=== PATIENT | male | born 1945 | race Caucasian/White ===

== ENCOUNTER 2024-01-14 09:26 | Emergency (ER) | payer MEDICARE, OTHER ==
[2024-01-14 09:44] VITALS: RESP 18; TEMP 98.3
--- NOTE | 2024-01-14 10:20 | ED ---
General Adult HPI - General Chief complaint: Upper Respiratory Infection Stated complaint: Chest Pain Time Seen by Provider: 01/14/24 09:46 Source: patient, RN notes reviewed Mode of arrival: ambulatory Limitations: no limitations - History of Present Illness Initial comments: This is a 78-year-old male who presents to the emergency department for chest pain, shortness of breath, body aches, coughing, and congestion. Symptoms started 1.5 weeks ago. States that it hurts to take a deep breath and feels like he is unable to take a deep breath. He also feels fatigued and short of breath with exertion. Denies any sick contacts. He did just start Remicade infusions for Crohn's disease about a month ago. Denies any fevers/chills. He has also started to develop a headache and states that his body aches seem to be getting worse. - Related Data Home Medications Medication Instructions Recorded Confirmed Calcium Carb/Vitamin D3/Vit K1 1 tab PO DAILY 01/14/24 01/14/24 [Viactiv 650 mg-12.5 Mcg Chew] Cyanocobalamin [Vitamin B-12 1,000 mcg SQ QMONTHLY 01/14/24 01/14/24 Injection] Glucosam/Dane-Msm1/C/Jose/Bosw 2 tab PO DAILY 01/14/24 01/14/24 [Glucosamine-Chondroitin Tablet] [place]-3/Dha/Epa/Fish Oil [Fish Oil 1 cap PO DAILY 01/14/24 01/14/24 1,000 mg Softgel] Psyllium Husk [Metamucil] 0.4 gm PO DAILY 01/14/24 01/14/24 Turmeric Root Extract [Turmeric] 500 mg PO DAILY 01/14/24 01/14/24 Zinc Gluconate [Zinc] 50 mg PO DAILY 01/14/24 01/14/24 Previous Rx's Medication Instructions Recorded Azithromycin [Zithromax] 250 mg PO DIRECTED 5 Days #6 tab 01/14/24 Benzonatate [Tessalon Perle] 200 mg PO TID PRN #30 capsule 01/14/24 Nirmatrelvir/Ritonavir [Paxlovid 1 pack PO BID 5 Days #30 tab 01/14/24 300-100 mg Dose Pack] Ondansetron Odt [Zofran Odt] 4 mg PO Q8HR PRN #15 tab 01/14/24 Allergies Allergy/AdvReac Type Severity Reaction Status Date / Time No Known Allergies Allergy Verified 01/14/24 12:08 Review of Systems ROS Statement: Those systems with pertinent positive or pertinent negative responses have been documented in the HPI. ROS Other: All systems not noted in ROS Statement are negative. Past Medical History Additional Past Medical History / Comment(s): Crohns History of Any Multi-Drug Resistant Organisms: None Reported Past Psychological History: No Psychological Hx Reported Smoking Status: Never smoker Past Alcohol Use History: Occasional Past Drug Use History: None Reported General Exam Limitations: no limitations General appearance: alert, in no apparent distress Head exam: Present: atraumatic, normocephalic, normal inspection Respiratory exam: Present: normal lung sounds bilaterally. Absent: respiratory distress, wheezes, rales, rhonchi, stridor Cardiovascular Exam: Present: regular rate, normal rhythm, normal heart sounds. Absent: systolic murmur, diastolic murmur, rubs, gallop, clicks Neurological exam: Present: alert, oriented X3, CN II-XII intact Psychiatric exam: Present: normal affect, normal mood Skin exam: Present: warm, dry, intact, normal color. Absent: rash Course Vital Signs 01/14/24 01/14/24 01/14/24 09:30 09:52 10:34 Temperature 98.3 F Pulse Rate 84 86 Respiratory 18 18 18 Rate Blood Pressure 131/74 120/70 O2 Sat by Pulse 96 98 Oximetry 01/14/24 12:45 Temperature Pulse Rate 89 Respiratory 18 Rate Blood Pressure 132/86 O2 Sat by Pulse 97 Oximetry Medical Decision Making - Medical Decision Making This is a 78 year old male who presents to the emergency department for shortness of breath, fatigue, and body aches. Was pt. sent in by a medical professional or institution? @ -No Did you speak to anyone other than the patient for history? @ -No Did you review nursing and triage notes? @ -Yes, and I agree, it is accurate with regards to the patient's symptoms. Were old charts reviewed? @ -No Differential Diagnosis? @ -Differential Dyspnea: Coronary syndrome, arrhythmia, tamponade, asthma, COPD, pulmonary embolism, pneumonia, pneumothorax, pulmonary effusion, anaphylaxis, diabetic ketoacidosis, flailed chest, pulmonary contusion, diaphragmatic rupture, anemia, neuromuscular, this is not meant to be an all-inclusive list. EKG interpreted by me (3pts min.)? @ -EKG interpreted by me demonstrating the following: Sinus rhythm. Ventricular rate 69 bpm, CO interval 184 ms, QRS duration 101 ms, QTc 398 ms. X-rays interpreted by me (1pt min.)? @ -Chest x-ray obtained, my interpretation identifies scattered opacities. CT interpreted by me (1pt min.)? @ -Not obtained U/S interpreted by me (1pt. min.)? @ -Not obtained What testing was considered but not performed? (CT, X-rays, U/S, labs)? Why? @ -None What meds were considered but not given? Why? @ -None Did you discuss the management of the patient with other professionals? @ -No Did you reconcile home meds? @ -No Was smoking cessation discussed for >3mins.? @ -No Was critical care preformed (if so, how long)? @ -No Were there social determinants of health that impacted care today? How? (Homelessness, low income, unemployed, alcoholism, drug addiction, transpor tation, low edu. Level, literacy, decrease access to med. care, fpc, rehab)? @ -No Was there de-escalation of care discussed even if they declined? (Discuss DNR or withdrawal of care, Hospice)? @ -No What co-morbidities impacted this encounter? (DM, HTN, Smoking, COPD, CAD, Cancer, CVA, Hep., AIDS, mental health diagnosis, sleep apnea, morbid obesity)? @ -Crohn's disease Was patient admitted / discharged? @ -Discharged. Lab work unremarkable, including a negative troponin and negative D-dimer. Patient positive for COVID-19. Influenza and RSV testing were negative. Urinalysis negative for signs of infection. Chest x-ray demonstrates subtle scattered opacities which may represent an atypical pneu monia. Findings reviewed with the patient. Given that the patient is immunocompromised, he was started on Paxlovid as well as azithromycin for possible superimposed infection based on chest x-ray findings. Prescription for Tessalon Perles and zofran provided as well for symptomatic management. Advised getting plenty of rest and drinking plenty of fluids. Patient discharged home in stable condition. Undiagnosed new problem with uncertain prognosis? @ -None Drug Therapy requiring intensive monitoring for toxicity (Heparin, Nitro, Insulin, Cardizem)? @ -None Were any procedures done? @ -None Diagnosis/symptom? @ -COVID-19 pneumonia Acute, or Chronic, or Acute on Chronic? @ -Acute Uncomplicated (without systemic symptoms) or Complicated (systemic symptoms)? @ -Uncomplicated Side effects of treatment? @ -None Exacerbation, Progression, or Severe Exacerbation] @ -Not applicable Poses a threat to life or bodily function? @ -No Return precautions reviewed in depth, the patient is instructed to return to the emergency department with any new, worsening, or concerning symptoms. Patient verbalized understanding. This case was discussed in detail with the attending ED physician, Dr. Solorio. Presentation, findings, and treatment plan discussed in detail as well. - Lab Data Result diagrams: 01/14/24 10:50 01/14/24 10:50 Lab Results 01/14/24 01/14/24 01/14/24 Range/Units 10:50 10:50 10:50 WBC 7.0 (3.8-10.6) k/uL RBC 3.93 L (4.30-5.90) m/uL Hgb 12.2 L (13.0-17.5) gm/dL Hct 37.1 L (39.0-53.0) % MCV 94.6 (80.0-100.0) fL MCH 31.0 (25.0-35.0) pg MCHC 32.8 (31.0-37.0) g/dL RDW 13.0 (11.5-15.5) % Plt Count 215 (150-450) k/uL MPV 8.7 Neutrophils % 76 % Lymphocytes % 11 % Monocytes % 8 % Eosinophils % 3 % Basophils % 0 % Neutrophils # 5.3 (1.3-7.7) k/uL Lymphocytes # 0.8 L (1.0-4.8) k/uL Monocytes # 0.5 (0-1.0) k/uL Eosinophils # 0.2 (0-0.7) k/uL Basophils # 0.0 (0-0.2) k/uL PT 11.1 (10.0-12.5) sec INR 1.0 (<1.2) APTT 28.2 (22.0-30.0) sec D-Dimer 0.38 (<0.60) mg/L FEU Sodium 137 (137-145) mmol/L Potassium 4.3 (3.5-5.1) mmol/L Chloride 104 (98-107) mmol/L Carbon Dioxide 29 (22-30) mmol/L Anion Gap 4 mmol/L BUN 11 (9-20) mg/dL Creatinine 0.94 (0.66-1.25) mg/dL Est GFR (CKD-EPI)AfAm 90 (>60 ml/min/1.73 sqM) Est GFR (CKD-EPI)NonAf 78 (>60 ml/min/1.73 sqM) Glucose 94 (74-99) mg/dL Plasma Lactic Acid Clifford (0.7-2.0) mmol/L Calcium 8.7 (8.4-10.2) mg/dL Magnesium 2.1 (1.6-2.3) mg/dL Total Bilirubin 1.2 (0.2-1.3) mg/dL AST 25 (17-59) U/L ALT 14 (4-49) U/L Alkaline Phosphatase 65 (38-126) U/L Troponin I (0.000-0.034) ng/mL NT-Pro-B Natriuret Pep 146 pg/mL Total Protein 6.5 (6.3-8.2) g/dL Albumin 3.8 (3.5-5.0) g/dL Urine Color Urine Appearance (Clear) Urine pH (5.0-8.0) Ur Specific [place] (1.001-1.035) Urine Protein (Negative) Urine Glucose (UA) (Negative) Urine Ketones (Negative) Urine Blood (Negative) Urine Nitrite (Negative) Urine Bilirubin (Negative) Urine Urobilinogen (<2.0) mg/dL Ur Leukocyte Esterase (Negative) Influenza Type A (PCR) (Not Detectd) Influenza Type B (PCR) (Not Detectd) RSV (PCR) (Not Detectd) SARS-CoV-2 (PCR) (Not Detectd) 01/14/24 01/14/24 01/14/24 Range/Units 10:50 10:50 10:53 WBC (3.8-10.6) k/uL RBC (4.30-5.90) m/uL Hgb (13.0-17.5) gm/dL Hct (39.0-53.0) % MCV (80.0-100.0) fL MCH (25.0-35.0) pg MCHC (31.0-37.0) g/dL RDW (11.5-15.5) % Plt Count (150-450) k/uL MPV Neutrophils % % Lymphocytes % % Monocytes % % Eosinophils % % Basophils % % Neutrophils # (1.3-7.7) k/uL Lymphocytes # (1.0-4.8) k/uL Monocytes # (0-1.0) k/uL Eosinophils # (0-0.7) k/uL Basophils # (0-0.2) k/uL PT (10.0-12.5) sec INR (<1.2) APTT (22.0-30.0) sec D-Dimer (<0.60) mg/L FEU Sodium (137-145) mmol/L Potassium (3.5-5.1) mmol/L Chloride (98-107) mmol/L Carbon Dioxide (22-30) mmol/L Anion Gap mmol/L BUN (9-20) mg/dL Creatinine (0.66-1.25) mg/dL Est GFR (CKD-EPI)AfAm (>60 ml/min/1.73 sqM) Est GFR (CKD-EPI)NonAf (>60 ml/min/1.73 sqM) Glucose (74-99) mg/dL Plasma Lactic Acid Clifford 1.0 (0.7-2.0) mmol/L Calcium (8.4-10.2) mg/dL Magnesium (1.6-2.3) mg/dL Total Bilirubin (0.2-1.3) mg/dL AST (17-59) U/L ALT (4-49) U/L Alkaline Phosphatase (38-126) U/L Troponin I <0.012 (0.000-0.034) ng/mL NT-Pro-B Natriuret Pep pg/mL Total Protein (6.3-8.2) g/dL Albumin (3.5-5.0) g/dL Urine Color Urine Appearance (Clear) Urine pH (5.0-8.0) Ur Specific [place] (1.001-1.035) Urine Protein (Negative) Urine Glucose (UA) (Negative) Urine Ketones (Negative) Urine Blood (Negative) Urine Nitrite (Negative) Urine Bilirubin (Negative) Urine Urobilinogen (<2.0) mg/dL Ur Leukocyte Esterase (Negative) Influenza Type A (PCR) Not Detected (Not Detectd) Influenza Type B (PCR) Not Detected (Not Detectd) RSV (PCR) Not Detected (Not Detectd) SARS-CoV-2 (PCR) Detected A (Not Detectd) 01/14/24 Range/Units 10:55 WBC (3.8-10.6) k/uL RBC (4.30-5.90) m/uL Hgb (13.0-17.5) gm/dL Hct (39.0-53.0) % MCV (80.0-100.0) fL MCH (25.0-35.0) pg MCHC (31.0-37.0) g/dL RDW (11.5-15.5) % Plt Count (150-450) k/uL MPV Neutrophils % % Lymphocytes % % Monocytes % % Eosinophils % % Basophils % % Neutrophils # (1.3-7.7) k/uL Lymphocytes # (1.0-4.8) k/uL Monocytes # (0-1.0) k/uL Eosinophils # (0-0.7) k/uL Basophils # (0-0.2) k/uL PT (10.0-12.5) sec INR (<1.2) APTT (22.0-30.0) sec D-Dimer (<0.60) mg/L FEU Sodium (137-145) mmol/L Potassium (3.5-5.1) mmol/L Chloride (98-107) mmol/L Carbon Dioxide (22-30) mmol/L Anion Gap mmol/L BUN (9-20) mg/dL Creatinine (0.66-1.25) mg/dL Est GFR (CKD-EPI)AfAm (>60 ml/min/1.73 sqM) Est GFR (CKD-EPI)NonAf (>60 ml/min/1.73 sqM) Glucose (74-99) mg/dL Plasma Lactic Acid Clifford (0.7-2.0) mmol/L Calcium (8.4-10.2) mg/dL Magnesium (1.6-2.3) mg/dL Total Bilirubin (0.2-1.3) mg/dL AST (17-59) U/L ALT (4-49) U/L Alkaline Phosphatase (38-126) U/L Troponin I (0.000-0.034) ng/mL NT-Pro-B Natriuret Pep pg/mL Total Protein (6.3-8.2) g/dL Albumin (3.5-5.0) g/dL Urine Color Yellow Urine Appearance Clear (Clear) Urine pH 5.5 (5.0-8.0) Ur Specific [place] 1.020 (1.001-1.035) Urine Protein Trace H (Negative) Urine Glucose (UA) Negative (Negative) Urine Ketones Negative (Negative) Urine Blood Negative (Negative) Urine Nitrite Negative (Negative) Urine Bilirubin Negative (Negative) Urine Urobilinogen <2.0 (<2.0) mg/dL Ur Leukocyte Esterase Negative (Negative) Influenza Type A (PCR) (Not Detectd) Influenza Type B (PCR) (Not Detectd) RSV (PCR) (Not Detectd) SARS-CoV-2 (PCR) (Not Detectd) - Radiology Data Radiology results: report reviewed, image reviewed Disposition Clinical Impression: Pneumonia due to COVID-19 virus Disposition: HOME SELF-CARE Instructions (If sedation given, give patient instructions): Coronavirus Disease 2019 (COVID-19), COVID-19 (Coronavirus Disease 2019) (ED), Safely Care for Someone Who Has COVID-19 (ED) Additional Instructions: Return to the emergency department with any new, worsening, or concerning symptoms. Take the antibiotic as prescribed for 5 days. Take the Paxlovid twice daily for 5 days. You can take the Tessalon Perles up to every 8 hours as needed for coughing. You can take the Zofran up to every 8 hours as needed for nausea and vomiting. Make sure you get plenty of rest and drink plenty of fluids. Follow up with your primary care provider in 1-2 days. Prescriptions: Nirmatrelvir/Ritonavir [Paxlovid 300-100 mg Dose Pack] 1 pack PO BID 5 Days #30 tab Benzonatate [Tessalon Perle] 200 mg PO TID PRN #30 capsule PRN Reason: Cough Azithromycin [Zithromax] 250 mg PO DIRECTED 5 Days #6 tab Ondansetron Odt [Zofran Odt] 4 mg PO Q8HR PRN #15 tab PRN Reason: Nausea And Vomiting Is patient prescribed a controlled substance at d/c from ED?: No Referrals: Nonstaff,Physician [Primary Care Provider] - 1-2 days Time of Disposition: 12:28
[2024-01-14 11:15] LABS: Basophils % (A) 0 %; Eosinophils # (A) 0.2 k/uL (0-0.7); Eosinophils % (A) 3 %; HCT 37.1 % (39.0-53.0); HGB 12.2 gm/dL (13.0-17.5); Lymphocytes # (A) 0.8 k/uL (1.0-4.8); Lymphocytes % (A) 11 %; MCHC 32.8 g/dL (31.0-37.0); MCV 94.6 fL (80.0-100.0); Mean Platelet Volume 8.7; Monocytes # (A) 0.5 k/uL (0-1.0); Monocytes % (A) 8 %; Neutrophils # (A) 5.3 k/uL (1.3-7.7); Neutrophils % (A) 76 %; Platelet Count 215 k/uL (150-450); Prothrombin Time 11.1 sec (10.0-12.5); RBC 3.93 m/uL (4.30-5.90)
[2024-01-14 11:16] LABS: Partial Thromboplastin Time 28.2 sec (22.0-30.0)
[2024-01-14 11:20] LABS: ALT 14 U/L (4-49); AST 25 U/L (17-59); African American GFR (CKD) 90 (>60 ml/min/1.73 sqM); Albumin 3.8 g/dL (3.5-5.0); Alkaline Phosphatase 65 U/L (38-126); Anion Gap 4 mmol/L; Blood Urea Nitrogen 11 mg/dL (9-20); Calcium 8.7 mg/dL (8.4-10.2); Carbon Dioxide 29 mmol/L (22-30); Chloride 104 mmol/L (98-107); Glucose 94 mg/dL (74-99); Magnesium 2.1 mg/dL (1.6-2.3); Non-African American GFR(CKD) 78 (>60 ml/min/1.73 sqM); Potassium 4.3 mmol/L (3.5-5.1); Sodium 137 mmol/L (137-145); Total Bilirubin 1.2 mg/dL (0.2-1.3); Total Protein 6.5 g/dL (6.3-8.2)
[2024-01-14 11:28] LABS: Appearance,Urine Clear (Clear); Bilirubin,Urine Negative (Negative); Blood,Urine Negative (Negative); Color,Urine Yellow; Glucose,Urine (UA) Negative (Negative); Ketones,Urine Negative (Negative); Leukocyte Esterase,Urine Negative (Negative); Nitrite,Urine Negative (Negative); PH, Urine 5.5 (5.0-8.0); Protein,Urine Trace (Negative); Urobilinogen,Urine <2.0 mg/dL (<2.0)
[2024-01-14 11:29] LABS: NT-Pro-B-Type Natriuretic Pept 146 pg/mL
--- NOTE | 2024-01-14 12:02 | XR ---
EXAMINATION TYPE: XR chest 2V DATE OF EXAM: 01/14/2024 11:52 AM CLINICAL INDICATION:Male, 78 years old with history of difficulty breathing; LOCATED WITHIN [facility] COMPARISON: Chest radiographs from 01/14/2024 TECHNIQUE: XR chest 2V Frontal and lateral views of the chest. FINDINGS: Lungs/Pleura: Scattered subtle reticular and hazy opacities. No evidence of pneumothorax, focal conso lidation or pleural effusion. Pulmonary vascularity: Unremarkable. Heart/mediastinum: Cardiomediastinal silhouette is unremarkable. Musculoskeletal: No acute osseous pathology. IMPRESSION: Subtle scattered opacities which may represent an atypical pneumonia.
[2024-01-14 13:29] VITALS: BP 132/86; PULSE 89
== END 2024-01-14 13:03 | disposition home or self-care (01) ==
LOC: EC 09:26
DX: U07.1 COVID-19 (principal); J12.82 Pneumonia due to coronavirus disease 2019; K50.90 Crohn's disease, unspecified, without complications
CPT/HCPCS: 36415; 71046; 80053; 81003; 83605; 83735; 83880; 84484; 85025; 85379; 85610; 85730; 87636; 93005; 99285

== ENCOUNTER 2024-03-11 07:25 | Emergency (ER) | payer MEDICARE, OTHER ==
[2024-03-11] MEDS: EPINEPHrine - Anaphylaxis Kit (1 mg/mL) IM STA ×2 (07:55→09:31)
[2024-03-11 08:03] VITALS: RESP 18
--- NOTE | 2024-03-11 08:05 | ED ---
General Adult HPI - General Chief complaint: ENT Stated complaint: throat/facial swelling Time Seen by Provider: 03/11/24 07:35 Source: patient, RN notes reviewed, old records reviewed Mode of arrival: ambulatory Limitations: no limitations - History of Present Illness Initial comments: This is a 78-year-old male who presents to the emergency department complaining that his throat feels like it is closing off as well as some swelling to the left side of his cheek. Patient states this all started last night when he ate some fish at a restaurant and it came on rather quickly. Patient states he did have an episode over the weekend where he felt like his allergies were acting up and he felt a little raspy in his throat and he is not sure these 2 are related but he did take some allergy medication and that did seem to help that situation. Patient states overnight the symptoms did get worse. Patient denies any fever chills. Patient denies any pain. Patient denies any difficulty breathing. Patient has any hives or any itching. Patient denies any facial pain or pain in his teeth as he has dentures. - Related Data Home Medications Medication Instructions Recorded Confirmed Cyanocobalamin [Vitamin B-12 1,000 mcg SQ Q30D 01/14/24 03/11/24 Injection] Glucosam/Dane-Msm1/C/Jose/Bosw 1 tab PO DAILY@1200 01/14/24 03/11/24 [Glucosamine-Chondroitin Tablet] Zinc Gluconate [Zinc] 50 mg PO DAILY@1200 01/14/24 03/11/24 Fish Oil(Unknown Dose) 1 tab PO DAILY@1200 03/11/24 03/11/24 Vitamin D3(Unknown Dose) 1 tab PO DAILY@1200 03/11/24 03/11/24 inFLIXimab [Remicade] 1 dose IVPB Q56D 03/11/24 03/11/24 Previous Rx's Medication Instructions Recorded EPINEPHrine (Auto Inject) [Epipen] 0.3 mg IM ONCE PRN #2 each 03/11/24 predniSONE [Deltasone] 40 mg PO DAILY #8 tab 03/11/24 Allergies Allergy/AdvReac Type Severity Reaction Status Date / Time No Known Allergies Allergy Verified 03/11/24 10:39 Review of Systems ROS Statement: Those systems with pertinent positive or pertinent negative responses have been documented in the HPI. ROS Other: All systems not noted in ROS Statement are negative. Past Medical History Additional Past Medical History / Comment(s): Crohns History of Any Multi-Drug Resistant Organisms: None Reported Past Surgical History: No Surgical Hx Reported Past Psychological History: No Psychological Hx Reported Smoking Status: Never smoker Past Alcohol Use History: Occasional Past Drug Use History: None Reported General Exam - General Exam Comments Initial Comments: GENERAL: Patient is well-developed and well-nourished. Patient is nontoxic and well- hydrated and is in mild distress. ENT: Neck is soft and supple. No significant lymphadenopathy is noted. Oropharynx is clear. Moist mucous membranes. Neck has full range of motion without eliciting any pain. Left side of patient's face is slightly swollen in the area of the cheek patient's voice is somewhat raspy EYES: The sclera were anicteric and conjunctiva were pink and moist. Extraocular movements were intact and pupils were equal round and reactive to light. Eyelids were unremarkable. PULMONARY: Unlabored respirations. Good breath sounds bilaterally. No audible rales rhonchi or wheezing was noted. CARDIOVASCULAR: There is a regular rate and rhythm without any murmurs gallops or rubs. ABDOMEN: Soft and nontender with normal bowel sounds. SKIN: Skin is clear with no lesions or rashes and otherwise unremarkable. NEUROLOGIC: Patient is alert and oriented x3. Cranial nerves II through XII are grossly intact. Motor and sensory are also intact. Normal speech, volume and content. Symmetrical smile. MUSCULOSKELETAL: Normal extremities with adequate strength and full range of motion. LYMPHATICS: No significant lymphadenopathy is noted PSYCHIATRIC: Normal psychiatric evaluation. Limitations: no limitations Course Vital Signs 03/11/24 03/11/24 03/11/24 07:32 08:01 08:44 Temperature 97.9 F Pulse Rate 100 64 60 Respiratory 20 18 18 Rate Blood Pressure 138/75 121/73 O2 Sat by Pulse 97 97 97 Oximetry 03/11/24 03/11/24 03/11/24 08:45 09:34 11:00 Temperature 98.1 F Pulse Rate 54 L 56 L Respiratory 18 18 18 Rate Blood Pressure 124/74 O2 Sat by Pulse 98 99 Oximetry Medical Decision Making - Medical Decision Making Was pt. sent in by a medical professional or institution (, PA, SUPERVISOR PLASMA, urgent care, hospital, or half-way...) When possible be specific @ -No Did you speak to anyone other than the patient for history (EMS, parent, family, police, friend...)? What history was obtained from this source @ -No Did you review nursing and triage notes (agree or disagree)? Why? @ -I reviewed and agree with nursing and triage notes Were old charts reviewed (outside hosp., previous admission, EMS record, old EKG, old radiological studies, urgent care reports/EKG's, half-way records)? Report findings @ -No old charts were reviewed Differential Diagnosis? @ -Pharyngitis, allergic reaction, strep pharyngitis, this is not an all- inclusive list EKG interpreted by me (3pts min.). @ -As above X-rays interpreted by me (1pt min.). @ -None done CT interpreted by me (1pt min.). @ -CT of the soft tissues of the neck showed a possible internal carotid thrombosis U/S interpreted by me (1pt. min.). @ -Ultrasound done of the left upper extremity into the neck region showed no thrombosis. What testing was considered but not performed or refused? (CT, X-rays, U/S, labs)? Why? @ -None What meds were considered but not given or refused? Why? @ -None Did you discuss the management of the patient with other professionals (professionals i.e. , PA, SUPERVISOR PLASMA, lab, RT, psych nurse, social human services assistants, snuff grinder and screener, teacher, security flex utility officer, spring encaser)? Give summary @ -No Was smoking cessation discussed for >3mins.? @ -No Was critical care preformed (if so, how long)? @ -No Were there social determinants of health that impacted care today? How? (Homelessness, low income, unemployed, alcoholism, drug addiction, transportation, low edu. Level, literacy, decrease access to med. care, detention, rehab)? @ -No Was there de-escalation of care discussed even if they declined (Discuss DNR or withdrawal of care, Hospice)? DNR status @ -No What co-morbidities impacted this encounter? (DM, HTN, Smoking, COPD, CAD, Cancer, CVA, ARF, Chemo, Hep., AIDS, mental health diagnosis, sleep apnea, morbid obesity)? @ -None Was patient admitted / discharged? Hospital course, mention meds given and route, prescriptions, significant lab abnormalities, going to OR and other pertinent info. @ -Patient received steroids epi and Solu-Medrol and was feeling considerably better at discharge. Patient was instructed to return to the emergency department if symptoms worsen or any difficulty breathing Undiagnosed new problem with uncertain prognosis? @ -No Drug Therapy requiring intensive monitoring for toxicity (Heparin, Nitro, Insulin, Cardizem)? @ -No Were any procedures done? @ -No Diagnosis/symptom? @ -Allergic reaction Acute, or Chronic, or Acute on Chronic? @ -Acute Uncomplicated (without systemic symptoms) or Complicated (systemic symptoms)? @ -Complicated Side effects of treatment? @ -No Exacerbation, Progression, or Severe Exacerbation? @ -No Poses a threat to life or bodily function? How? (Chest pain, [place], [place], pneumonia, PE, COPD, DKA, ARF, appy, cholecystitis, CVA, Diverticulitis, Homicidal, Mckenzie cidal, threat to staff... and all critical care pts) @ -No - Lab Data Result diagrams: 03/11/24 08:28 03/11/24 08:28 Lab Results 03/11/24 03/11/24 Range/Units 08:28 08:28 WBC 9.2 (3.8-10.6) k/uL RBC 4.26 L (4.30-5.90) m/uL Hgb 13.7 (13.0-17.5) gm/dL Hct 41.1 (39.0-53.0) % MCV 96.6 (80.0-100.0) fL MCH 32.2 (25.0-35.0) pg MCHC 33.3 (31.0-37.0) g/dL RDW 13.3 (11.5-15.5) % Plt Count 211 (150-450) k/uL MPV 9.3 Neutrophils % 64 % Lymphocytes % 24 % Monocytes % 5 % Eosinophils % 5 % Basophils % 0 % Neutrophils # 5.9 (1.3-7.7) k/uL Lymphocytes # 2.2 (1.0-4.8) k/uL Monocytes # 0.5 (0-1.0) k/uL Eosinophils # 0.4 (0-0.7) k/uL Basophils # 0.0 (0-0.2) k/uL Sodium 140 (137-145) mmol/L Potassium 3.7 (3.5-5.1) mmol/L Chloride 110 H (98-107) mmol/L Carbon Dioxide 25 (22-30) mmol/L Anion Gap 5 mmol/L BUN 10 (9-20) mg/dL Creatinine 1.02 (0.66-1.25) mg/dL Est GFR (CKD-EPI)AfAm 81 (>60 ml/min/1.73 sqM) Est GFR (CKD-EPI)NonAf 70 (>60 ml/min/1.73 sqM) Glucose 129 H (74-99) mg/dL Calcium 9.3 (8.4-10.2) mg/dL Total Bilirubin 0.8 (0.2-1.3) mg/dL AST 27 (17-59) U/L ALT 16 (4-49) U/L Alkaline Phosphatase 57 (38-126) U/L Total Protein 6.7 (6.3-8.2) g/dL Albumin 3.9 (3.5-5.0) g/dL Disposition Clinical Impression: Allergic reaction Disposition: HOME SELF-CARE Instructions (If sedation given, give patient instructions): General Allergic Reaction (ED) Additional Instructions: Patient should take Benadryl as needed for difficulty swallowing or breathing. Patient should return to the emergency department for any difficulty breathing if it is significant difficulty breathing patient should use the EpiPen. Prescriptions: predniSONE [Deltasone] 40 mg PO DAILY #8 tab EPINEPHrine (Auto Inject) [Epipen] 0.3 mg IM ONCE PRN #2 each PRN Reason: Difficulty breathing Is patient prescribed a controlled substance at d/c from ED?: No Referrals: Nonstaff,Physician [Primary Care Provider] - 1-2 days Time of Disposition: 13:39
[2024-03-11 08:42] LABS: Basophils % (A) 0 %; Eosinophils # (A) 0.4 k/uL (0-0.7); Eosinophils % (A) 5 %; HCT 41.1 % (39.0-53.0); HGB 13.7 gm/dL (13.0-17.5); Lymphocytes # (A) 2.2 k/uL (1.0-4.8); Lymphocytes % (A) 24 %; MCH 32.2 pg (25.0-35.0); MCHC 33.3 g/dL (31.0-37.0); MCV 96.6 fL (80.0-100.0); Mean Platelet Volume 9.3; Monocytes # (A) 0.5 k/uL (0-1.0); Monocytes % (A) 5 %; Neutrophils # (A) 5.9 k/uL (1.3-7.7); Neutrophils % (A) 64 %; Platelet Count 211 k/uL (150-450); RBC 4.26 m/uL (4.30-5.90); RDW 13.3 % (11.5-15.5); WBC 9.2 k/uL (3.8-10.6)
[2024-03-11] MEDS: FAMOTIDINE 20 MG/2 ML VIAL IV STA (08:44)
[2024-03-11] MEDS: methylPREDNISolone SOD SUCCI 125 MG/2 ML VIAL IV STA (08:44)
[2024-03-11] MEDS: diphenhydrAMINE 50 MG/ML 1 ML VIAL IVP STA (08:44)
[2024-03-11 09:07] LABS: ALT 16 U/L (4-49); AST 27 U/L (17-59); African American GFR (CKD) 81 (>60 ml/min/1.73 sqM); Albumin 3.9 g/dL (3.5-5.0); Alkaline Phosphatase 57 U/L (38-126); Anion Gap 5 mmol/L; Blood Urea Nitrogen 10 mg/dL (9-20); Calcium 9.3 mg/dL (8.4-10.2); Carbon Dioxide 25 mmol/L (22-30); Chloride 110 mmol/L (98-107); Glucose 129 mg/dL (74-99); Non-African American GFR(CKD) 70 (>60 ml/min/1.73 sqM); Potassium 3.7 mmol/L (3.5-5.1); Sodium 140 mmol/L (137-145); Total Bilirubin 0.8 mg/dL (0.2-1.3); Total Protein 6.7 g/dL (6.3-8.2)
--- NOTE | 2024-03-11 11:07 | CT ---
EXAMINATION TYPE: CT soft tissue neck w con CT DLP: 253.8 mGycm, Automated exposure control for dose reduction was used. DATE OF EXAM: 03/11/2024 10:50 AM COMPARISON: None. CLINICAL INDICATION:Male, 78 years old with history of Dysphagia; PHH, left side neck and facial swel ling TECHNIQUE: Standard enhanced CT of the neck following intravenous administration of 100 cc of Isovue 300. Axial sections with coronal and sagittal reformats were obtained. FINDINGS: Brain: Visualized portions are grossly unremarkable. Orbits: Unremarkable Sinuses: Mild mucosal thickening of the bilateral ethmoid sinuses. Mild to moderate mucosal thickenin g of the left maxillary sinus. Minimal mucosal thickening in the inferior right maxillary sinus. Suprahyoid Neck: The oropharynx, oral cavity, parapharyngeal and retropharyngeal spaces are clear and symmetric. The nasopharynx is unremarkable. Infrahyoid Neck: The larynx, hypopharynx, and supraglottic area are clear and symmetric. Parotid Glands: Unremarkable. Submandibular Glands: Unremarkable. Musculoskeletal: No acute osseous pathology. Post surgical changes involving the mandible. Mild multi level degenerative disc disease. Lymph nodes: A few nonenlarged lymph nodes are seen along both anterior chains of the neck. Vascular structures: Visualized major arteries are patent without evidence of aneurysm. There is none nhancement of the left internal jugular vein from just after the sigmoid sinus to the level of the andre bclavian vein. There is enhancement throughout the right internal jugular vein. Thoracic Inlet/airway: Airway is patent. Paraseptal emphysematous changes within the visualized bilat eral upper lobes. Bilateral reticular peripheral opacities. Soft tissues/Thyroid: Thyroid is unremarkable. There is some subtle fat stranding identified within t he left cheek soft tissues (series 202, image 21). No organized fluid collection identified. Other: none. 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 Additional fat stranding identified withi n the left cheek without organized fluid collection. Moderate left maxillary sinus mucosal sinus dise ase.
[2024-03-11 11:52] VITALS: TEMP 98.1
--- NOTE | 2024-03-11 13:16 | US ---
EXAMINATION TYPE: US venous doppler duplex UE LT DATE OF EXAM: 03/11/2024 COMPARISON: CT CLINICAL INDICATION: Male, 78 years old with history of Thrombophlebitis; left neck swelling, abnorma l CT SIDE PERFORMED: left Grayscale, color doppler, spectral doppler imaging performed of the deep veins of the upper extremiti es. The internal jugular vein in particular is widely patent and compressible. There is normal flow, compressibility and vascular waveforms. Left Arm: Negative for DVT IMPRESSION: No evidence for DVT left upper extremity. The internal jugular vein in particular is widely patent. C T findings left internal jugular vein therefore suggestive of mixing artifact.
[2024-03-11 13:52] VITALS: BP 112/68; PULSE 68
== END 2024-03-11 13:52 | disposition home or self-care (01) ==
LOC: EC 07:25
DX: T78.40XA Allergy, unspecified, initial encounter (principal)
CPT/HCPCS: 36415; 87651; 80053; 85025; 93971; 70491; 99284; 96374; 96375 ×2; 96372 ×2; J0171; J1200; J3490; Q9967; J2919